=== PATIENT | female | born 1975 | race Caucasian/White ===

== ENCOUNTER → 2024-04-28 11:37 | Outpatient (REF) | payer BC, SELFPAY | LOC: WDC 11:37 | PROVIDERS: ATTENDING PHYSICIAN Hospitalist | DX: Z12.31 Encounter for screening mammogram for malignant neoplasm of breast (principal) | CPT/HCPCS: 77063; 77067 ==

== ENCOUNTER 2025-04-13 06:11 | Day surgery (SDC) | payer BC, SELFPAY | END 2025-04-13 10:51 | disposition home or self-care (01) | LOC: GI 06:11 | PROVIDERS: ATTENDING PHYSICIAN Internal Medicine Gastroenterology | DX: Z12.11 Encounter for screening for malignant neoplasm of colon (principal); K57.30 Diverticulosis of large intestine without perforation or abscess without bleeding; K64.8 Other hemorrhoids; D12.0 Benign neoplasm of cecum | CPT/HCPCS: 45380; 88305 ==